=== PATIENT | female | born 1955 | race Caucasian/White ===

== ENCOUNTER 2021-09-25 15:43 | Emergency (ER) | payer MEDICARE ==
[~2021-09-25 15:43] MED LIST: ASPIRIN EC81 MG PO; DOXYCYCLINE HY100 MG PO; IPRAT-ALBUT 0.5-3 ML NEB; K-DUR TAB 10 M10 MEQ PO; LEVOFLOXACIN750 MG PO; LOPRESSOR 25 MG25 MG PO; MOBIC7.5 MG PO; PROZAC20 MG PO; ZOCOR20 MG PO
[2021-09-25 17:06] LABS: BUN/CREATININE RATIO 13 (0-10)
[2021-09-25 17:36] LABS: HEMOGLOBIN 9.8 gm/dl (12.3-15.3); RED BLOOD COUNT 4.18 M/UL (4.00-5.10); WHITE BLOOD COUNT 10.6 K/UL (4.5-11.0)
[2021-09-25] MEDS ORDERED: MEDROL4 MG PO (18:22)
[2021-09-25] MEDS ORDERED: BENZONATATE200 MG PO (18:22)
[2021-09-25] MEDS ORDERED: CEFUROXIME500 MG PO (18:22)
[2021-09-25] MEDS ORDERED: ZITHROMAX500 MG PO (18:22)
== END 2021-09-25 18:45 | disposition left against medical advice (07) ==
LOC: ER1 15:43
PROVIDERS: Preventive Medicine Occupational Medicine
DX: J44.0 Chronic obstructive pulmonary disease with (acute) lower respiratory infection (principal); J18.9 Pneumonia, unspecified organism; I25.10 Atherosclerotic heart disease of native coronary artery without angina pectoris; Z20.822 Contact with and (suspected) exposure to COVID-19
CPT/HCPCS: 0240U; 36600; 71045; 80053; 82550; 82553; 82803; 83690; 83880; 84484; 85025; 85652; 86140; 93005; 94664; 94760; 96365; 96375; 99283; J0696; J2930

== ENCOUNTER 2021-11-18 20:05 | Emergency (ER) | payer MEDICARE ==
[~2021-11-18 20:05] MED LIST changes: +BENZONATATE200 MG PO; +CEFUROXIME500 MG PO; +MEDROL4 MG PO; +ZITHROMAX500 MG PO
== END 2021-11-18 23:00 | disposition left against medical advice (07) ==
LOC: ER1 20:05
DX: S89.92XA Unspecified injury of left lower leg, initial encounter (principal); S99.922A Unspecified injury of left foot, initial encounter; X58.XXXA Exposure to other specified factors, initial encounter
CPT/HCPCS: 73564; 73610; 99281